=== PATIENT | female | born 1955 | race Caucasian/White ===

== ENCOUNTER 2021-08-30 12:36 | Emergency (ER) | payer OTHER, SELFPAY ==
--- NOTE | ~2021-08-30 | XR_ITS ---
EXAMINATION: XR lumbar spine 2-3V EXAM DATE: 08/30/2021 13:02 INDICATION: Low back pain. No known recent injury. TECHNIQUE: Lumber spine frontal, lateral, lateral L5-S1 projections for interpretation. There is no prior study for comparison. FINDINGS: Mild to moderate disc disease L2-3. Mild upper lumbar, mild to moderate lower lumbar facet arthropathy. No spondylolysis. The vertebral bodies are aligned in the AP dimension. There are no ac clifton fractures identified. Sacrum, sacroiliac joints, sacral arcuate lines are intact. Paraspinal soft tissue is unremarkable. IMPRESSION: 1. Mild to moderate lumbar spondylosis. 2. No acute findings. Reviewed, dictated and finalized at location A.
--- NOTE | 2021-08-30 12:44 | ED.BACK ---
HPI - Back Pain/Injury General Chief Complaint: Back Pain/Injury Stated Complaint: Lower back pain Time Seen by Provider: 08/30/21 12:44 Source: patient Mode of arrival: ambulatory Limitations: no limitations History of Present Illness HPI Narrative: 66 y/o female presented for c/o low back pain onset about 6 days ago. Pain across low back radiates to left buttock. Constant, worse when sitting better when laying flat. Denies numbness tingling or weakness of extremities, denies known injury but states she went on a trip, traveling in a motor home and noticed the pain worsening after running over speed bumps and potholes. Saw chiropractor 4 days ago, felt better after the adjustment, but the pain returned after working and walking often the next day. Since then she has been taking ibuprofen which helps for short time. Denies associated n/v/d/constipation, urinary complaints, f/c. Related Data Allergies Allergy/AdvReac Type Severity Reaction Status Date / Time Sulfa (Sulfonamide Allergy Unknown Verified 08/30/21 12:48 Antibiotics) Review of Systems Review of Systems: CONSTITUTIONAL: Denies body aches, fever, chills EYES: Denies visual changes ENT: Denies rhinorrhea, congestion CARDIOVASCULAR: Denies chest pain, palpitations, or edema. RESPIRATORY: Denies cough or dyspnea. GASTROINTESTINAL: Denies abdominal pain, nausea, vomiting, or diarrhea. SKIN: Denies rash, itching, or wounds. MUSCULOSKELETAL: Reports low back pain NEUROLOGIC: Denies headache, numbness, tingling, or weakness. PSYCH: Denies depression or anxiety. All systems reviewed & are unremarkable except as noted in HPI and below [facility] Comments At time of signature, I have reviewed and agree with nursing past medical, surgical, social and family history unless otherwise noted. Please see nursing chart for further information. There is no relevant family history pertinent to the presenting complaint Exam Narrative: GENERAL: Appears in pain no acute distress. HEAD: Normocephalic, atraumatic. EYES: conjunctivae clear NECK: Supple. CHEST: Speaks in full sentences. No respiratory distress. HEART: Regular rate and rhythm. Normal and equal peripheral pulses. EXTREMITIES: Pain reported across lower back, tender to palpation in the left mid posterior hip consistent with piriformis; bilateral lower extremities have normal strength and sensation, normal range of motion. No edema, lesions, or ecchymosis, . No open wounds or obvious deformity; pulse palpable and equal bilaterally, skin warm, dry, pink. Capillary refill less than 3 seconds. Gait is steady. SKIN: Warm, dry, no rash. NEURO: Alert and oriented x3. PSYCH: Normal mood and affect Course Course Emergency Course: Patient is aware of diagnosis, understands and agrees to treatment plan. Anticipatory guidance given. Patient agrees to follow-up as directed and is aware of reasons to seek care at the emergency department. Portions of this record may have been created with voice recognition software Level of Care: Express Care Visit Vital Signs Vital signs: Vital Signs Temperature 98.2 F 08/30/21 12:45 Pulse Rate 93 08/30/21 12:45 Respiratory Rate 16 08/30/21 12:45 Blood Pressure 126/95 H 08/30/21 12:45 Pulse Oximetry 97 08/30/21 12:45 Temperature 98.2 F 08/30/21 12:45 Pulse Rate 93 08/30/21 12:45 Respiratory Rate 16 08/30/21 12:45 Blood Pressure 126/95 H 08/30/21 12:45 Pulse Oximetry 97 08/30/21 12:45 Reviewed MDM - Back Pain/Injury Differential Diagnosis Differential diagnosis: Likely lumbar radiculopathy, sciatica, strain of lumbar region and discitis Imaging Data Radiologist's impression: Ordering Physician: Huong High APRN Date of Service: 08/30/21 Procedure(s): XR lumbar spine 2-3V Accession Number(s): [id number] cc: Huong High APRN; PROMOTION SPECIALIST PHYSICIAN~ EXAMINATION: XR lumbar spine 2-3V EXAM DATE: 08/30/2021 13:02 INDICATION: Low branden
[2021-08-30 12:45] VITALS: BP 126/95; PULSE 93; RESP 16; TEMP 36.8; O2SAT 97
== END 2021-08-30 13:36 | disposition home or self-care (01) ==
PROVIDERS: Emergency Provider Nurse Practitioner Family
DX: M54.50 Low back pain, unspecified (principal)
CPT/HCPCS: 72100; 99213; G0463

== ENCOUNTER 2021-09-08 10:31 | Emergency (ER) | payer OTHER, SELFPAY ==
[2021-09-08 10:39] VITALS: BP 153/85; PULSE 94; RESP 16; TEMP 36.2; O2SAT 100
--- NOTE | 2021-09-08 10:47 | ED.GENADULT ---
HPI - General Adult General Chief complaint: Unspecified Stated complaint: pinch nerve and numbness Time Seen by Provider: 09/08/21 10:50 Source: patient, RN notes reviewed and old records reviewed Mode of arrival: ambulatory Limitations: no limitations History of Present Illness HPI narrative: 66 year old female presents to [facility] care with complaints of going over 3 speed bumps on their way back from vacation about 2 weeks ago and really caitlin her back Patient was seen in clinic on the and received steroid, and muscle relaxer and had back x-ray done with completion of medication but continues to have problems. Patient states 'she has pinched sciatic nerve going down her leg. Patient reports that she has been seeing chiropractor also with last visit on Thursday which only helps for short interval and has initial appointment with PCP on the 18 of September.Patient states that pain goes from left buttock region arouund left hip laterally down left leg with some intermittent tingling and numbness voiced. 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 MD complaint: Pain to left buttock to left hip and down side of leg Onset (ago): week(s) (2) Location: buttocks, left and lower extremity Radiation: non-radiation Severity scale (1-10): 9 Quality: aching and sharp Treatments prior to arrival: other (medrol dose back and Flexeril and Ibuprofen.) Related Data Home Medications Medication Instructions Recorded Confirmed B12 1 tablet PO DAILY 09/08/21 09/08/21 Allergies Allergy/AdvReac Type Severity Reaction Status Date / Time Sulfa (Sulfonamide Allergy Unknown Verified 09/08/21 10:46 Antibiotics) Review of Systems Review of Systems: CONSTITUTIONAL: Denies fever, chills, or sweats. EYES: Denies visual changes, redness, or discharge. ENT: Denies rhinorrhea, congestion, sore throat, or otalgia. CARDIOVASCULAR: Denies chest pain, palpitations, or edema. RESPIRATORY: Denies cough or dyspnea. GASTROINTESTINAL: Denies abdominal pain, nausea, vomiting, or diarrhea. GENITOURINARY: Denies dysuria or hematuria. SKIN: Denies rash or itching. MUSCULOSKELETAL: Positive for left buttock discomfort with radiation to left hip area and down lateral aspect left lag.no other stated joint pain, or myalgia. NEUROLOGIC: Denies headache, numbness, or weakness. PSYCHIATRIC: Denies anxiety or depression. All systems reviewed & are unremarkable except as noted in HPI and below [facility] Past Medical History Medical History (Updated 09/08/21 @ 19:51 by Lizzie Briones NP) Shoulder injury Social History Social History (Updated 09/08/21 @ 19:52 by Lizzie Briones NP) Smoking status: Never smoker Alcohol intake: current Alcohol use details: social Substance use type: does not use Living arrangements: with family Gender identity (if verbalized by the patient): Female Comments At time of signature, agree with nursing past medical, surgical, social and family history. There is no relevant family history pertinent to the presenting complaint Exam Narrative: GENERAL: Well-appearing, well-nourished, and in some acute distress related to discomfort. HEAD: Normocephalic, atraumatic. EYES: PERRLA and EOMI. ENT: Nares clear, no rhinorrhea or epistaxis. Mucous membranes moist. NECK: Supple. no lymphadenopathy CHEST: Clear to auscultation. No respiratory distress.SAO2 100% on room air HEART: Regular rate and rhythm. No murmur heard. Normal peripheral pulses. ABDOMEN: Soft, nontender, nondistended, normal active bowel sounds. EXTREMITIES: Painful range of motion with ambulation to left lower back with radiation down left hip and lateral leg. No edema. Report some intermittent tingling and numbness, denies any saddle paraesthesia, no problems with bowel or bladder function, strong pulses present to bilateral feet. SKIN: Warm, dry, no rash. NEURO: No focal deficits. Alert and oriented x3. Course Course L
== END 2021-09-08 11:15 | disposition home or self-care (01) ==
PROVIDERS: Emergency Provider Registered Nurse
DX: M54.16 Radiculopathy, lumbar region (principal)
CPT/HCPCS: 99213; G0463

== ENCOUNTER 2021-09-14 13:22 | Emergency (ER) | payer OTHER, SELFPAY ==
[2021-09-14 13:33] VITALS: BP 168/83; PULSE 82; RESP 16; TEMP 36.6; O2SAT 99
--- NOTE | 2021-09-14 13:38 | ED.LOWEXIN ---
HPI - Extremity Injury (Lower) General Chief Complaint: Back Pain/Injury Stated Complaint: hip pain Time Seen by Provider: 09/14/21 13:38 Source: patient Mode of arrival: ambulatory Limitations: no limitations History of Present Illness HPI Narrative: 66 year old female presents to [facility] care for the 3rd time for c/o left lower back and hip pain, radiating to foot, described as a numbness. Endorses left lateral hip and hamstring sharp pain at times. Worse with laying flat. Patient states that pain goes from left buttock around left hip laterally and down left leg with some intermittent tingling and numbness. Endorses the bottom of left foot numb today. Patient states she walks a lot for work at [employer]. Patient was seen in clinic on 08/30 where she received steroid IM, medrol pack, and muscle relaxer; she had L-spine x-ray done, with completion of medication she continued to have problems and returned on 09/08, given prednisone taper and baclofen. Patient reports that she has been seeing chiropractor, scheduled again in 2 days, which only helps for short time and has initial appointment with PCP in 4 days. Related Data Home Medications Medication Instructions Recorded Confirmed mecobalamin (vitamin B12) 1,000 mcg PO DAILY 09/14/21 09/14/21 Allergies Allergy/AdvReac Type Severity Reaction Status Date / Time Sulfa (Sulfonamide Allergy Unknown Verified 09/14/21 13:48 Antibiotics) Review of Systems Review of Systems: CONSTITUTIONAL: Denies body aches, fever, chills EYES: Denies visual changes ENT: Denies rhinorrhea, congestion CARDIOVASCULAR: Denies chest pain, palpitations, or edema. RESPIRATORY: Denies cough or dyspnea. GASTROINTESTINAL: Denies abdominal pain, nausea, vomiting, or diarrhea. SKIN: Denies rash, itching, or wounds. MUSCULOSKELETAL: reports back and hip pain NEUROLOGIC: Denies headache PSYCH: Denies depression or anxiety. All systems reviewed & are unremarkable except as noted in HPI and below PMF[facility] Past Medical History Medical History (Updated 09/14/21 @ 14:04 by Huong High APRN) Shoulder injury Social History Social History Smoking status: Never smoker Alcohol intake: current Alcohol use details: social Substance use type: does not use Gender identity (if verbalized by the patient): Female Comments At time of signature, I have reviewed and agree with nursing past medical, surgical, social and family history unless otherwise noted. Please see nursing chart for further information. There is no relevant family history pertinent to the presenting complaint Exam Narrative: GENERAL: Well-appearing HEAD: Normocephalic, atraumatic. EYES: conjunctivae clear NECK: Supple. CHEST: Speaks in full sentences. No respiratory distress. HEART: Regular rate and rhythm. Normal and equal peripheral pulses. EXTREMITIES: LLE has normal strength and sensation, normal range of motion but endorses pain with movement. Tender to palpation in the left mid posterior hip consistent with piriformis. No edema. No saddle paresthesia, or loss b/b. No open wounds, skin tenting, or obvious deformity; alignment normal, pulse palpable and equal bilaterally, skin warm, dry, pink. Capillary refill less than 3 seconds. Ambulates with steady gait. SKIN: Warm, dry, no rash. NEURO: Alert and oriented x3. PSYCH: Normal mood and affect Course Course Emergency Course: Patient is aware of diagnosis, understands and agrees to treatment plan. Anticipatory guidance given. Patient agrees to follow-up as directed and is aware of reasons to seek care at the emergency department. Portions of this record may have been created with voice recognition software Level of Care: Express Care Visit Vital Signs Vital signs: Reviewed MDM - Extremity Injury (Lower) MDM Narrative Medical decision making narrative: Lumbar xray reviewed from 08/30, Mild to modera
== END 2021-09-14 14:10 | disposition home or self-care (01) ==
PROVIDERS: Emergency Provider Nurse Practitioner Family; PCP Family Medicine
DX: M54.16 Radiculopathy, lumbar region (principal)
CPT/HCPCS: 99213; G0463

== ENCOUNTER 2021-09-24 15:16 | Emergency (ER) | payer OTHER, SELFPAY ==
[2021-09-24 15:39] VITALS: BP 165/104; PULSE 95; RESP 16; TEMP 36.7; O2SAT 100
[2021-09-24 18:46] VITALS: BP 167/104; PULSE 94; RESP 18; O2SAT 97
--- NOTE | 2021-09-24 19:21 | ECG_ITS ---
Measurements Intervals [place] Rate: 91 P: 21 MO: 155 QRS: -53 QRSD: 98 T: 16 QT: 332 QTc: 408 Interpretive Statements SINUS RHYTHM LEFT ANTERIOR FASCICULAR BLOCK VOLTAGE CRITERIA FOR LVH ABNORMAL ECG Electronically Signed On 09-25-2021 6:27:40 CDT by Freddy Buchanan D.O.
[2021-09-24 19:39] LABS: Basophils Percent Auto 0.3 % (0.2-1.2); Eosinophils Absolute Auto 0.1 K/mm3 (0-0.3); Eosinophils Percent Auto 1.3 % (0-4.4); Hemoglobin 15.6 g/dL (12.0-15.0); Immature Granulocyte Absolute 0.05 K/mm3 (0.00-0.031); Immature Granulocyte Percent A 0.5 % (0-0.5); Lymphocytes Absolute Auto 1.93 K/mm3 (0.9-3.2); Lymphocytes Percent Auto 20.7 % (18.3-44.2); Mean Corpuscular HGB Conc 33.2 g/dl (32-36); Mean Corpuscular Hemoglobin 33.3 pg (26-34); Mean Corpuscular Volume 100.2 fl (80-100); Mean Platelet Volume 9.7 fl (7.4-10.4); Monocytes Absolute Auto 0.8 K/mm3 (0.1-0.6); Monocytes Percent Auto 8.1 % (2.6-8.5); Neutrophils Absolute Auto 6.5 K/mm3 (1.3-6.7); Neutrophils Percent Auto 69.1 % (45.5-73.1); Platelet Count Result 304 k/mm3 (150-375); Red Blood Count 4.69 M/mm3 (4.2-5.4); Red Cell Distribution Width 12.8 % (11.5-14.5); White Blood Count 9.3 K/mm3 (4.5-10.0)
[2021-09-24 19:45] LABS: Alanine Aminotransferase 49 U/L (6-35); Albumin Level 4.5 g/dL (3.5-5.1); Alkaline Phosphatase 112 U/L (38-126); Anion Gap 6 mmol/L (8-16); Aspartate Amino Transferase 35 U/L (14-36); Bilirubin,Total 0.8 mg/dL (0.2-1.3); Blood Urea Nitrogen 21 mg/dL (7-17); Calcium 9.2 mg/dL (8.4-10.2); Carbon Dioxide 29 mmol/L (22-30); Chloride 98 mmol/L (98-107); Estimated CRCL calculation 89 ml/min; Estimated Glomerular Filt Rate > 60; Glucose 204 mg/dL (65-110); Magnesium 1.9 mg/dL (1.6-2.3); Potassium 4.6 mmol/L (3.4-5.0); Sodium 133 mmol/L (137-145)
[2021-09-24] MEDS: SODIUM CHLORIDE 0.9% IV 1,000 ML 999 ML IV CONT (20:18)
--- NOTE | 2021-09-24 21:23 | ED.GENADULT ---
HPI - General Adult General Chief complaint: Neuro Symptoms/Deficit Stated complaint: bilat feet numbness since 08/27 Time Seen by Provider: 09/24/21 19:10 Source: patient and RN notes reviewed Mode of arrival: ambulatory Limitations: no limitations History of Present Illness HPI narrative: This is a 66 year old female who presents for evaluation of numbness to her feet. Patient has been dealing with pain to her left hip/back for 1 month. She is currently being evaluated by her PCP for this pain that radiates down her leg. She reports numbness to her foot for month. She states tonight she felt off. She also reports numbness to both of her feet. She denies leg weakness, abdominal pain, back pain, nausea, vomiting, chest pain or shortness of breath. She has been on gabapentin for 1 week. her PCP perform left hip injection last week so her hip pain has improved. She denies saddle anesthesia, urinary retention, incontinence. She denies difficulty walking. Related Data Allergies Allergy/AdvReac Type Severity Reaction Status Date / Time Sulfa (Sulfonamide Allergy Mild joint Verified 09/24/21 18:49 Antibiotics) swelling Review of Systems Review of Systems: All systems reviewed & are unremarkable except as noted in HPI and below PMFSH Past Medical History Medical History Cholecystitis Shoulder injury Tubal Surgical History Surgical History (Updated 09/17/21 @ 08:30 by Dora Pickett MD) History of salpingectomy Hx of cholecystectomy Family History Family History (Updated 09/17/21 @ 08:10 by Daphne Sutherland) Father Diabetes mellitus Hypertension Mother Diabetes mellitus Social History Social History (Updated 09/17/21 @ 08:09 by Daphne Sutherland) Social History: Smoking status: Never smoker Second hand tobacco smoke exposure: No Alcohol intake: current Alcohol use details: Socially Substance use: never Substance use type: does not use Gender identity (if verbalized by the patient): Female Sexual Orientation (if Verbalized by the Patient): Straight or Heterosexual Exam Const: General: no acute distress and alert Orientation/consciousness: patient oriented x3 HENMT: Head: normocephalic Face and sinus: normal facial exam, sinuses nontender and face symmetric Mouth: Yes Normal oral and palatal mucosa present, Yes lip normal, Yes oropharynx normal and Yes moist mucous membranes Eyes: EOM: EOMs intact bilaterally Chest: Chest palpation & inspection: normal inspection of the chest Resp: Effort & Inspection: normal respiratory effort and no retractions Auscultation: clear to auscultation bilaterally Cardio: Rate: regular rate Rhythm: regular rhythm Heart sounds: no murmurs GI: GI Palp: Yes Soft to palpation, No Tenderness to palpation present (GI) and No Guarding due to palpation present (GI) Auscultation: normal bowel sounds : General: Yes no CVA tenderness Back/Spine/Pelvis: Back: no CVA tenderness Skin: General skin exam: normal color Neuro: General: patient oriented x3, moves all extremities, no meningeal signs, no focal motor deficits and CN's II-XI intact bilaterally Speech: normal speech Other: sensation intact. Extrem: General: normal to inspection Psych: Mental Status: mental status grossly normal Affect: normal affect Course Reevaluation(s) Reevaluation #1: Patient presented with numbness to feet that has been present for 1 month. She has not signs of ischemia . She had no appreciable neurological deficit to warrant emergent MRI. She just started gabapentin so will increase dose. LAbs showed some dehydration so she was given IVF. Date: 09/24/21 Time: 21:27 Vital Signs Vital signs: Vital Signs Temperature 98.0 F 09/24/21 15:39 Pulse Rate 95 09/24/21 15:39 Respiratory Rate 16 09/24/21 15:39 Blood Pressure 165/104 H 09/24/21 15:39 Pulse Oximetry
[2021-09-24 22:53] VITALS: BP 175/111; PULSE 87; RESP 16; O2SAT 98
== END 2021-09-24 21:41 | disposition home or self-care (01) ==
PROVIDERS: Emergency Provider General Practice; PCP Family Medicine
DX: G62.9 Polyneuropathy, unspecified (principal)
CPT/HCPCS: 36415; 80053; 83735; 84443; 85025; 93005; 96360; 99283; J7030

== ENCOUNTER 2021-09-26 14:28 | Outpatient (CLI) | payer OTHER, SELFPAY ==
--- NOTE | ~2021-09-26 | XR_ITS ---
EXAMINATION: XR hip BI wo pelvis DATE: 09/26/2021 14:52 INDICATION: Bilateral hip pain. TECHNIQUE: 2 views of right hip and 2 views of left hip were obtained. COMPARISON: None. FINDINGS: Bone alignment is normal. No fracture. There is mild lumbar spondylosis. The hip joint spac es are normal. IMPRESSION: 1. Normal hips. Reviewed, dictated and finalized at location A. IMPRESSION: 1. Normal hips.
== END 2021-09-26 14:29 | disposition home or self-care (01) ==
LOC: ANHIMG 14:31
PROVIDERS: PCP Family Medicine; Visit Provider Nurse Practitioner Gerontology
DX: M25.551 Pain in right hip (principal); M25.552 Pain in left hip; M47.816 Spondylosis without myelopathy or radiculopathy, lumbar region
CPT/HCPCS: 73521

== ENCOUNTER 2022-06-02 07:34 | Outpatient (CLI) | payer MEDICARE, SELFPAY ==
--- NOTE | ~2022-06-02 | CT_ITS ---
EXAMINATION: CT facial bones w con DATE: 06/02/2022 08:20 INDICATION: Right buccal mass. TECHNIQUE: Computed tomography (CT) of the facial bones and maxillofacial region was performed with 7 5 mL Omnipaque 350 intravenous contrast. Automated exposure control and iterative reconstruction tech Webymasterque were employed. The dose-length product was 275.12 mGy-cm. COMPARISON: None. FINDINGS: There is mild mucosal thickening in the paranasal sinuses. The mastoid air cells are normal . There is rightward deviation of the nasal septum. There are periapical lucencies around tooth 5. Th ere is severe cervical spondylosis. There is a skin marker at the right face. Subjacent to the skin m arker and lateral to right mandibular body, there is a 3.3 x 1.8 x 2.1 cm lipoma. IMPRESSION: 1. 3.3 cm lipoma lateral to right mandibular body. Reviewed, dictated and finalized at location A. ADJUSTER
[2022-06-02 08:10] LABS: Estimated Glomerular Filt Rate > 60
== END 2022-06-02 07:35 | disposition home or self-care (01) ==
PROVIDERS: PCP Family Medicine; Visit Provider Dentist General Practice
DX: D21.0 Benign neoplasm of connective and other soft tissue of head, face and neck (principal)
CPT/HCPCS: 70487; Q9967

== ENCOUNTER 2022-06-18 09:11 | Outpatient (CLI) | payer MEDICARE, SELFPAY ==
--- NOTE | ~2022-06-18 | MM_ITS ---
EXAMINATION: MM scrn ji implant BI w suzy HISTORY: Screening mammogram TECHNIQUE: Craniocaudal and mediolateral oblique 3-D tomosynthesis images with implant displacement a nd synthetic 2-D images were generated. Craniocaudal and mediolateral oblique views of the breasts wi thout implant displacement were obtained using full field digital mammography. CAD analysis was submi tted and interpreted. COMPARISON: No prior mammogram is available for comparison at this institution. BREAST PARENCHYMAL COMPOSITION: There are scattered areas of fibroglandular density. FINDINGS: Status post bilateral augmentation mammoplasty. There are some subtle punctate microcalcifications in the mid to upper outer right breast. Diagnostic right mammogram with magnification views is recommended for definitive evaluation. Otherwise there is no evidence of suspicious mass, calcification, or architectural distortion to sugg est malignancy in either breast. IMPRESSION: 1. Subtle grouped indeterminate microcalcifications in the mid to upper outer right breast 2. Diagnostic right mammogram with magnification views is recommended for definitive evaluation of gr ouped microcalcifications BI-RADS Category 0: Incomplete: Needs additional imaging evaluation. Reviewed, dictated and finalized at location A. SCUTTER IMPRESSION: 1. Subtle grouped indeterminate microcalcifications in the mid to upper outer r ight breast 2. Diagnostic right mammogram with magnification views is recommended for defin itive evaluation of grouped microcalcifications BI-RADS Category 0: Incomplete: Needs additional imaging evaluation.
== END 2022-06-18 09:12 | disposition home or self-care (01) ==
LOC: ANHIMG 09:12
PROVIDERS: PCP Family Medicine; Visit Provider Family Medicine
DX: Z12.31 Encounter for screening mammogram for malignant neoplasm of breast (principal); Z98.82 Breast implant status; R92.0 Mammographic microcalcification found on diagnostic imaging of breast
CPT/HCPCS: 77063; 77067

== ENCOUNTER 2022-07-07 11:44 | Outpatient (CLI) | payer MEDICARE, SELFPAY ==
--- NOTE | ~2022-07-07 | MMUS_ITS ---
EXAMINATION: MM diag ji implant RT w suzy, US breast RT limited HISTORY: Subtle grouped indeterminate microcalcifications in the mid to upper outer right breast on F ebruary 2022 screening mammogram TECHNIQUE: Additional 3-D ML tomosynthesis images of the right breast were performed and synthetic 2- D images were generated. Magnification ML, MLO and CC views of right breast. CAD analysis was submitt ed and interpreted. High resolution upper outer quadrant and lower outer quadrant right breast ultras ound was performed. COMPARISON: June 18, 2022 bilateral implant screening mammogram FINDINGS: MAMMOGRAPHIC FINDINGS: A cluster of indeterminate grouped granular appearing microcalcifications is confirmed in the posteri or mid to upper outer right breast. ULTRASOUND: No suspicious mass or shadowing is detected in the upper outer quadrant or lower outer quadrant of th e right breast. There is no sonographic correlate for the small cluster of grouped microcalcification s in the posterior mid to upper outer right breast. IMPRESSION: 1. Indeterminate grouped granular appearing microcalcifications in posterior mid to upper outer right breast 2. Stereotactic biopsy is recommended BI-RADS category 4, suspicious findings. Dr. Nicolas telephoned the report and stereotactic biopsy recommendation for microcalcifications in the posterior mid to upper outer right breast on July 07, 2022 at 1230 hours to nurse practitioner Danny peace. Reviewed, dictated and finalized at location A. TH AND WELLNESS COORDINATOR IMPRESSION: 1. Indeterminate grouped granular appearing microcalcifications in posterior mi d to upper outer right breast 2. Stereotactic biopsy is recommended BI-RADS category 4, suspicious findings. Dr. Nicolas telephoned the report and stereotactic biopsy recommendation for micro calcifications in the posterior mid to upper outer right breast on July 07, 2022 at 1230 hours to nurse practitioner Daphne.
== END 2022-07-07 11:45 | disposition home or self-care (01) ==
LOC: ANHIMG 11:49
PROVIDERS: PCP Family Medicine; Visit Provider Family Medicine
DX: R92.8 Other abnormal and inconclusive findings on diagnostic imaging of breast (principal); R92.0 Mammographic microcalcification found on diagnostic imaging of breast
CPT/HCPCS: 76642; 77061; 77065; G0279

== ENCOUNTER 2022-07-23 10:38 | Outpatient (CLI) | payer MEDICARE, SELFPAY ==
--- NOTE | ~2022-07-23 | MM_ITS ---
MM post biopsy diagnostic RT DATE: 07/23/2022 13:24 INDICATION: Post stereotactic biopsy mammogram TECHNIQUE: Digital ML and CC exposures COMPARISON: June 16, 2022 screening implant mammogram July 07, 2022 diagnostic implant mammogram FINDINGS: All microcalcifications of interest were successfully removed by stereotactic biopsy. The biopsy marker has migrated approximately 2 cm medial to the biopsy site. IMPRESSION: Successful extraction of all grouped microcalcifications of interest from the mid outer r ight breast; biopsy marker is migrated approximately 2 cm medial to the biopsy site. Reviewed, dictated and finalized at Location A. Reviewed, dictated and finalized at location A. IMPRESSION: Successful extraction of all grouped microcalcifications of interes t from the mid outer right breast; biopsy marker is migrated approximately 2 cm medial to the biopsy site.
--- NOTE | ~2022-07-23 | MM_ITS ---
MM stereotactic specimen RT DATE: 07/23/2022 13:24 INDICATION: Stereotactic biopsy of grouped microcalcifications, mid to posterior upper right breast TECHNIQUE: Single digital mammographic exposure of stereotactic biopsy specimen tissue COMPARISON: 07/07/2022 diagnostic right mammogram FINDINGS: The microcalcifications of interest are present within the biopsy specimen. IMPRESSION: Successful stereotactic breast biopsy yielding multiple microcalcifications of interest f rom the mid to upper outer right breast Reviewed, dictated and finalized at Location A. Reviewed, dictated and finalized at location A. IMPRESSION: Successful stereotactic breast biopsy yielding multiple microcalcif ications of interest from the mid to upper outer right breast
--- NOTE | ~2022-07-23 | MM_ITS ---
EXAMINATION: MM stereotactic bx RT, Specimen Radiograph, Tissue Marker Clip Placement, Unilateral [place] mogram DATE: 07/23/2022 13:23 INDICATION: Abnormal mammogram: Grouped indeterminate microcalcifications in the mid to upper right b reast. TECHNIQUE AND FINDINGS: The risks and potential benefits of the procedure were discussed with the patient and written informe d consent was obtained. Timeout procedure was performed. The patient was placed in the prone position on the dedicated stereotactic table with the right breast in lateral medial compression, and the are a of interest was localized and targeted utilizing digital imaging with stereotaxis. After sterile preparation of the skin, 1% lidocaine was utilized for local anesthesia at the skin pun cture site and 2 % lidocaine with epinephrine was utilized for deeper local anesthesia/is about the b iopsy site. A 9G [employer] vacuum assisted biopsy needle was advanced to the level of the calcification of interest from a lateral approach utilizing stereotactic guidance and a total of 12 tissue core bio psies were obtained. A specimen radiograph demonstrates that the calcifications of interest are included within the tissue cores. A tissue marker clip was then placed at the biopsy site. A digital mammographic exposure co nfirmed the successful deployment of the biopsy marker. The needle was removed and hemostasis was ac hieved. A sterile bandage was applied. The patient tolerated the procedure well and there is no elijah dence of significant immediate complication. The patient was given verbal as well as written postpro cedural instructions prior to discharge from the department. Tissue cores were submitted to surgical pathology for histologic analysis. A 2-view RIGHT unilateral digital mammogram was obtained post procedure, demonstrating the tissue mar ker clip in expected position. IMPRESSION: 1. Successful stereotactic biopsy of right mid to upper outer quadrant grouped microcalcifications, followed by tissue marker clip placement. Please refer to pathology report for histologic analysis. Reviewed, dictated and finalized at Location [facility]. Reviewed, dictated and finalized at location A. IMPRESSION: 1. Successful stereotactic biopsy of right mid to upper outer quadrant groupe d microcalcifications, followed by tissue marker clip placement. Please refer to pathology report for histologic analysis.
== END 2022-07-23 10:39 | disposition home or self-care (01) ==
PROVIDERS: PCP Family Medicine; Visit Provider Nurse Practitioner Gerontology
DX: R92.8 Other abnormal and inconclusive findings on diagnostic imaging of breast (principal); N60.11 Diffuse cystic mastopathy of right breast
CPT/HCPCS: 19081; 77065; 88305; A4648

== ENCOUNTER 2023-12-30 13:41 | Outpatient (CLI) | payer MEDICARE, SELFPAY ==
--- NOTE | ~2023-12-30 | MM_ITS ---
EXAMINATION: MM scrn ji implant BI w suzy HISTORY: Screening mammogram TECHNIQUE: Craniocaudal and mediolateral oblique 3-D tomosynthesis images with implant displacement a nd synthetic 2-D images were generated. Craniocaudal and mediolateral oblique views of the breasts wi thout implant displacement were obtained using full field digital mammography. CAD analysis was submi tted and interpreted. COMPARISON: Comparison to multiple prior studies sequentially, with oldest reviewed study dated 12/2022. BREAST PARENCHYMAL COMPOSITION: Not dense: There are scattered areas of fibroglandular density. FINDINGS: There is no evidence of suspicious mass, calcification, or architectural distortion to sugg est malignancy in either breast. There has been no suspicious interval change. IMPRESSION: 1. No mammographic evidence of malignancy. 2. Recommend routine screening mammography in one year. BI-RADS Category 1: Negative Reviewed, dictated and finalized at location B.
== END 2023-12-30 13:42 | disposition home or self-care (01) ==
LOC: ANHIMG 13:42
PROVIDERS: PCP Family Medicine; Visit Provider Family Medicine
DX: Z12.31 Encounter for screening mammogram for malignant neoplasm of breast (principal)
CPT/HCPCS: 77063; 77067

== ENCOUNTER 2025-01-24 14:12 | Outpatient (CLI) | payer MEDICARE, SELFPAY ==
--- NOTE | ~2025-01-24 | MM_ITS ---
EXAMINATION: MM scrn ji implant BI w suzy HISTORY: Screening TECHNIQUE: Craniocaudal and mediolateral oblique 3-D tomosynthesis images were obtained and synthetic 2-D images were generated. CAD analysis was submitted and interpreted. Implant displacement views were obtained. COMPARISON: 12/30/2023 BREAST PARENCHYMAL COMPOSITION: Not Dense: The breasts are almost entirely fatty. FINDINGS: There is no evidence of suspicious mass, calcification, or architectural distortion to suggest malignancy. There has been no suspicious interval change. Unremarkable breast implants. IMPRESSION: 1. No mammographic evidence of malignancy. Recommend routine screening mammography in one year. BI-RADS Category 2: Benign finding(s) Reviewed, dictated and finalized at location Q. IMPRESSION: 1. No mammographic evidence of malignancy. Recommend routine screening mammogra phy in one year. BI-RADS Category 2: Benign finding(s)
--- OUTSIDE RECORDS SUMMARY | 2025-01-24 15:52 | XMS_ITS | Clinical Summary ---
Author Organization [facility] Address [address] [place] [address] Care Team Providers Care Rod Buster Helper Name Role Phone Unavailable Primary Care Provider Unavailabl e Social History Tobacco Use Types Packs/Day Years Used Date Smoking Tobacco: Never Assessed Comments Unknown Sex and Gender Information Value Date Recorded Sex Assigned at Not on file Legal Sex Female 12:50 PM CDT Gender Identity Not on file Sexual Orientation Not on file Plan of Treatment Health Maintenance Due Date Last Done Comments Colorectal Cancer Screening Colonoscopy (10 Years) 1957 Hepatitis C 1975 DTaP, Tdap and Td Vaccines ( 1 - Tdap) 1976 Mammogram Screening 1997 Pneumococcal Vaccine: 50+ Ye ars (1 of 1 - PCV) 2007 Zoster Vaccines (1 of 2) 2007 Dexa Scan (General) 2022 COVID-19 Vaccine ( - 2023-2 5 season) 2025 RSV Immunization or 60+ Years (1 - 1-dose 75+ series) 2032 Meningococcal B Vaccine Aged Out No l onger eligible based on patient's age to complete this topic Meningococcal Vaccine Aged Out No najma tim eligible based on patient's age to complete this topic RSV Immunizations Under 20 Months Aged Out No longer eligible based on patient's age to complete this topic Insurance [place] [id number]
--- OUTSIDE RECORDS SUMMARY | 2025-01-24 15:52 | XMS_ITS | Clinical Summary ---
Author Organization [facility] Address [address] [place] [address] Care Team Providers Care Extruding Machine Operator Name Role Phone Unavailable Primary Care Provider Unavailabl e Source Comments [facility],non-owned Affiliates and Associated Physician Practices is amultiple site organization consisting of ambulatory clinics and hospital sitesin [place], [place], [place] and [place]. This disclosure is being madepursuant to the Care Everywhere program and may not contain all information available regarding this patient. 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 Gender Identity Not on file Sexual Orientation Not on file Plan of Treatment Health Maintenance Due Date Last Done Comments BONE DENSITY TESTING 1957 COLOGUARD (AGES 45-75) - COL ON CA SCREENING 1957 COLON MONITORING 1957 COLONOSCOPY - COLON CA SCREENING 1957 CT COLONOGRAPHY - COLON CA SCREENING 1957 Colorectal Cancer Screening 1957 FIT - COLON CA SCREENING 1957 FLEX SIG - COLON CA SCREENING 1957 LIPID TESTING 1957 MAMMOGRAM 1957 HEPATITIS C SCREENING 04/16/1975 DTAP/TDAP/TD VACCINES (1 - Tdap) 1976 PNEUMOCOCCAL VACCINE 50+ (1 of 1 - PCV) 2007 ZOSTER VACCINE (1 of 2) 2007 DEPRESSION SCREENING 05/11/2024 MEDICARE AWV CALENDAR YEAR 2024 COVID-19 VACCINE (1 - 2023-2 5 season) 2025 INFLUENZA VACCINE (#1) 2025 Respiratory Syncytial Virus (RSV) Vaccine Pt: or over 60 yrs (1 - 1-dose 75+ series) 2032 HEPATITIS B VACCINE Aged Out No longe r eligible based on patient's age to complete this topic HIB VACCINE Aged Out No longer eligi ble based on patient's age to complete this topic HPV VACCINE Aged Out No longer eligi ble based on patient's age to complete this topic MENINGOCOCCAL (Group B) VACC INE SHARED DECISION-MAKING Aged Out No longer eligibl e based on patient's age to complete this topic MENINGOCOCCAL GROUPS A/C/Y/W VACCINE Aged Out No longer eligible b ased on patient's age to complete this topic Insurance [employer] MANAGED MEDICARE ADV
--- OUTSIDE RECORDS SUMMARY | 2025-01-24 15:52 | XMS_ITS | Clinical Summary ---
Author Organization [facility] Address [address] [place] [address] Care Team Providers Care Knot Cutter Name Role Phone Dora Pickett MD Primary Care Provider [phone] Social History Tobacco Use Types Packs/Day Years Used Date Smoking Tobacco: Never Assessed Comments Unknown Sex and Gender Information Value Date Recorded Sex Assigned at Not on file Legal Sex Female 7:04 PM CDT Gender Identity Not on file Sexual Orientation Not on file Plan of Treatment Not on file Insurance MEDICA Care Teams Knot Cutter Relationship Specialty Start Date End Date Dora Pickett MD [address] [place] [address] PCP - General Family Medicine 10/21/21
--- OUTSIDE RECORDS SUMMARY | 2025-01-24 15:52 | XMS_ITS | Clinical Summary ---
Author Organization [address] Address [address] [place] [id number] Care Team Providers Care Communications Media Professor Name Role Phone Miscellaneous, Not In File Primary Care Provider Unavailable Allergies Active Allergy Reactions Criticality Noted Date Comments Sulfa (Sulfonamide Antibiotics) Itching,Edema,Joint pain Medium 10/21/2022 Medications cloNIDine (CATAPRES) 0.1 mg tablet Take 1 tablet (0.1 mg total) by mouth 2 (two) times a day as needed for high blood pressure (Systolic blood pressure above 180) 30 tablet 10/21/2022 Active Surgical History Surgery Date Site/Laterality Comments CHOLECYSTECTOMY TUBAL LIGATION Bilateral Medical History Medical History Date Comments Hypertension Social History Tobacco Use Types Packs/Day Years Used Date Smoking Tobacco: Never Smokeless Tobacco: Never Tobacco Cessation:Counseling Given: Not Answered Alcohol Use Standard Drinks/Week Comments Yes 0 (1 standard drink = 0.6 oz pur e alcohol) Socially Personal Safety Answer Date Recorded Getting School Help Needed Not on file 10/26 Comments Unknown Sex and Gender Information Value Date Recorded Sex Assigned at Not on file Legal Sex Female 1:26 PM LEAD INVESTIGATOR Gender Identity Not on file Sexual Orientation Not on file Obstetrics History Last Filed Vital Signs Vital Sign Reading Time Taken Comments Blood Pressure 156/87 10/21/2022 4:45 PM CDT Pulse 81 10/21/2022 4:45 PM CDT Temperature 36.9 C (98.5 F) 10/21/2022 1:16 PM CDT Respiratory Rate 13 10/21/2022 4:45 PM CDT Oxygen Saturation 93% 10/21/2022 4:45 PM CDT Inhaled Oxygen Concentration - - Weight 69.4 kg (153 lb) 10/21/2022 1:16 PM CDT Height 161.3 cm (5' 3.5) 10/21/2022 1:16 PM CDT Body Mass Index 26.68 10/21/2022 1:16 PM CDT Plan of Treatment Health Maintenance Due Date Last Done Comments Breast Cancer Screening-Mammogram 1957 Colon Cancer Screening-Colonoscopy 1957 Depression Screening 1957 Fall Risk Assessment 1957 Hepatitis C Screening 1957 Osteoporosis Screening-Bone Density Scan 1957 DTaP/Tdap/Td Vaccine (1 - Tdap) 1968 Hepatitis B Screening 1975 Pneumococcal vaccine 65+ (1 of 1 - PCV) 2007 Zoster Vaccine (1 of 2) 2007 Well Visit 65+ 2022 Covid-19 Vaccine ( season) 2025 04/11/2021, 09/26/2020, 08/29/2020 Influenza Vaccine (#1) 2025 Care Teams Communications Media Professor Relationship Specialty Start Date End Date Miscellaneous, Not In File PCP - General 10/21/22
--- OUTSIDE RECORDS SUMMARY | 2025-01-24 15:52 | XMS_ITS | Encounter Summary ---
Author Organization [facility] Address [address] [address] Care Team Providers Care Sole Dyer Name Role Phone Unavailable Primary Care Provider Unavailabl e Encounter Details Date Type Department Care Team (Late st Contact Info) Description 07/29/2022 Lab Requisition [facility] Care Pathology Lab [address] [place] [address] Ezra Rader MD [address] [facility] [facility] [address] [place] [id number] Illness, unspecified Social History Tobacco Use Types Packs/Day Years Used Date Smoking Tobacco: Never Assessed Comments Unknown Sex and Gender Information Value Date Recorded Sex Assigned at Not on file 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
== END 2025-01-24 14:13 | disposition home or self-care (01) ==
LOC: ANHFOHIMG 14:12
PROVIDERS: PCP Family Medicine; Visit Provider Family Medicine
DX: Z12.31 Encounter for screening mammogram for malignant neoplasm of breast (principal)
CPT/HCPCS: 77063; 77067

== ENCOUNTER 2025-04-03 10:23 | Emergency (ER) | payer MEDICARE, SELFPAY ==
--- NOTE | ~2025-04-03 | CT_ITS ---
EXAMINATION: CTA BRAIN/CAROTID DATE: 04/03/2025 11:30 INDICATION: Tremor TECHNIQUE: Computed tomographic angiography (CTA) of the head and neck was performed with 100 mL Omnipaque-350 intravenous contrast. Multiplanar reconstructions and maximum intensity projection 3D-reconstructions of the carotid arteries and of the intracranial arteries were created by the technologist on a separate workstation. Precontrast CT of the head was also obtained. Automated exposure control and iterative reconstruction technique were employed.The dose-length product was 1643.12 mGy-cm. COMPARISON: None. FINDINGS: Head: No acute intracranial hemorrhage, acute infarction or abnormal extra axial fluid collection. Ventricles are normal and symmetric. No mass/mass effect. No abnormally enhancing brain lesions on the post contrast imaging. The orbits, paranasal sinuses and mastoid air cells are normal. Intracranial arteries Vertebral arteries are codominant. Small amount of nonhemodynamically significant atherosclerotic plaque at the bilateral carotid siphons. There is no hemodynamically significant stenosis in the vertebral, basilar and internal carotid arteries. Both A1 and P1 segments are patent. There are also patent anterior communicating and bilateral posterior communicating arteries. There are no aneurysms identified. Cerebral arterial arborization appears symmetric. Carotid arteries: Aneurysmal dilation of the visualized ascending thoracic aorta measuring up to 4.3 cm. This tapers to a normal caliber of 3.4 cm at level of the takeoff of the innominate artery. No dissection of the visualized thoracic aorta. The great vessels arising from the arch are normal in caliber with no hemodynamically significant stenosis or dissection. There is no evident atherosclerotic plaque with 0% stenosis of the right and left carotid bulbs relative to normal distal artery lumen diameter (NASCET criteria). Bilateral extracranial vertebral arteries are codominant with no hemodynamically significant stenosis. Visualized upper lungs are clear. Cervical soft tissues are unremarkable. Mild to moderate cervical spondylosis. IMPRESSION: 1. No evident plaque with 0% stenosis of the right and left carotid bulbs relative to normal distal artery lumen diameter (NASCET criteria). 2. Unremarkable head CT and cerebral CT angiogram with no acute intracranial process, hemodynamically significant stenosis, thrombosis or aneurysm. Reviewed, dictated and finalized at location A. [facility] IMPRESSION: 1. No evident plaque with 0% stenosis of the right and left carotid bulbs relat bill to normal distal artery lumen diameter (NASCET criteria). 2. Unremarkable head CT and cerebral CT angiogram with no acute intracranial pr ocess, hemodynamically significant stenosis, thrombosis or aneurysm.
[2025-04-03 10:29] VITALS: BP 146/94; PULSE 86; RESP 16; TEMP 36.5; O2SAT 100
[2025-04-03 10:35] VITALS: BP 146/94; PULSE 88; RESP 21; O2SAT 98
--- NOTE | 2025-04-03 10:46 | ECG_ITS ---
Test Date: 2025-04-03 10:54:14 Measurements Intervals [place] Rate: 75 P: 66 DE: 167 QRS: -56 QRSD: 113 T: 20 QT: 366 QTc: 411 Interpretive Statements SINUS RHYTHM PATTERN CONSISTENT WITH PULMONARY DISEASE LEFT ANTERIOR FASCICULAR BLOCK [QRS AXIS <= -45, QR IN I, RS IN II] MODERATE VOLTAGE CRITERIA FOR LVH, CONSIDER NORMAL VARIANT [MEETS CRITERIA IN ONE OF: R(aVL), S(V1), R(V5), R(V5/V6)+S(V1)] ABNORMAL ECG No previous ECG available for comparison Electronically Signed On 04-03-2025 13:56:12 COLUMNIST by Rocky Richardson M.D.
--- NOTE | 2025-04-03 10:52 | ED_ITS ---
HPI - General Adult General Chief complaint: Unspecified Stated complaint: Dr sent me for CT scan Time Seen by Provider: 04/03/25 10:26 History of Present Illness HPI narrative: 69-year-old female presented to the emergency department for evaluation for head tremor that is been ongoing for the last few months. Patient did call her primary care physician today regarding the symptoms and she was referred to the emergency department for further evaluation. Patient states the tremor happens intermittently. Time of evaluation patient has no tremor. Patient is unable to say factors that make the tremor worse. Patient denies any medication changes. Patient does have a history of a fall a few weeks ago during which she states she woke up on her back. Patient contributed the cause of the fall to low blood sugar at that time. Patient does take amlodipine, gabapentin, irbesartan, metformin and trazodone. Related Data Allergies Allergy/AdvReac Type Severity Reaction Status Date / Time Sulfa (Sulfonamide Allergy Mild joint Verified 04/03/25 10:34 Antibiotics) swelling Review of Systems 2 Review of Systems: All systems reviewed & are unremarkable except as noted in HPI and below PMFSH Past Medical History Medical History (Updated 04/03/25 @ 12:22 by вИан Shelby MD) Low back pain GABRIEL (generalized anxiety disorder) Colon cancer screening Abnormal screening mammogram Colonoscopy refused Lumbar back sprain Leg pain, right Elevated BP without diagnosis of hypertension Breast screening Lipid screening B12 deficiency Numbness and tingling of both legs Acute pain due to injury Lumbosacral radiculopathy at S1 Sacroiliac joint dysfunction of left side Trochanteric bursitis, left hip Acute pain Tubal Cholecystitis Shoulder injury Surgical History Surgical History History of salpingectomy Hx of cholecystectomy Family History Family History Father Diabetes mellitus Hypertension Mother Diabetes mellitus Social History Social History Social History: Smoking status: Never smoker Second hand tobacco smoke exposure: No Alcohol intake: current Alcohol use details: Socially Substance use: never Substance use type: does not use Do You Feel Safe in your Home?: Yes Lack of Transportation: No Lack of Food: Never True Current Housing: I Have Housing Concerned About Future Housing: No Difficulty Paying Gas/Electric Bills: No Difficulty Paying for Meds: No Currently Unemployed: YES Education: Decline to Answer Difficulty w/ Childcare or Family Care: No Living arrangements: with family Occupation/Education: retired Gender identity (if verbalized by the patient): Female Sexual Orientation (if Verbalized by the Patient): Straight or Heterosexual Exam 2 Narrative: APPEARANCE: Well appearing, no pain, no distress, well-nourished. HEAD: normocephalic, atraumatic. EYES: PERRLA/EOMI, conjunctivae clear. NOSE: Normal no drainage EARS:TMS clear with good light reflex. THROAT: Pharynx clear, no exudate. NECK: Supple. No adenopathy, no masses. RESPIRATORY: Airway patent, respirations nonlabored. Clear to auscultation bilaterally, no rales, rhonchi, wheezing. CARDIOVASCULAR: Regular rate and rhythm without murmurs rubs or gallops. ABDOMINAL: Soft, nontender, nondistended, normal bowel sounds MUSCULOSKELETAL: Moves all extremities. Strength/ROM intact, No edema, No calf tenderness. NEURO: Alert. Cranial nerves II through XII intact. Good gait. Good coordination SKIN: Warm, dry. Normal Color PSYCHIATRIC: Normal affect/mood. Course Vital Signs Vital signs: Vital Signs Temperature 97.7 F 04/03/25 10:29 Pulse Rate 86 04/03/25 10:29 Respiratory Rate 16 04/03/25 10:29 Blood Pressure 146/94 H 04/03/25 10:29 Pulse Oximetry 100 04/03/25 10:29 Oxygen Delivery Room Air 04/03/25 10:29 Temperature 97.9 F 04/03/25 11:04 Pulse Rate 76 04/03/25 12:33 Respiratory Rate 24 H 04/03/25 11:04 Blood Pressure 150/93 H 04/03/25 12:33 Pulse Oximetry 100 04/03/25 11:04 Oxygen Delivery Room Air 04/03/25 10:35 Medical Decision Making MDM Narrative Medical decision making narrative: 69-year-old female presenting to the emergency department for evaluation for intermittent tremors. Patient has not yet had follow-up with primary care physician for this she was referred to the emergency department by her primary care physician. Patient had no tremor time of evaluation. Patient had normal neuro exam. Patient was well-appearing and in no distress. Patient was afebrile with no leukocytosis and a stable hemoglobin. INR of 1.0. Patient had no significant abnormalities on her CMP. CTA was negative for acute abnormality. Patient was up the results of her workup. Patient was encouraged close follow-up with her primary care physician. All questions concerns were addressed. Differential Diagnosis Differential Diagnosis: Subdural hematoma, subarachnoid hemorrhage, electrolyte abnormality, Calhoun's, Parkinson's, essential tremor Vital Signs Vital Signs: Vital Signs Temperature 97.7 F 04/03/25 10:29 Pulse Rate 86 04/03/25 10:29 Respiratory Rate 16 04/03/25 10:29 Blood Pressure 146/94 H 04/03/25 10:29 Pulse Oximetry 100 04/03/25 10:29 Oxygen Delivery Room Air 04/03/25 10:29 Temperature 97.9 F 04/03/25 11:04 Pulse Rate 76 04/03/25 12:33 Respiratory Rate 24 H 04/03/25 11:04 Blood Pressure 150/93 H 04/03/25 12:33 Pulse Oximetry 100 04/03/25 11:04 Oxygen Delivery Room Air 04/03/25 10:35 Lab Data Lab results reviewed: Yes I reviewed the patient's lab results. 04/03/25 11:02 04/03/25 11:19 Labs: Lab Results 04/03/25 04/03/25 Range/Units 11:02 11:19 WBC 4.6 (4.5-10.0) K/mm3 RBC 4.09 L (4.2-5.4) M/mm3 Hgb 13.7 (12.0-15.0) g/dL Hct 41.1 (37.0-47.0) % MCV 100.5 H (80-100) fl MCH 33.5 (26-34) pg MCHC 33.3 (32-36) g/dl RDW 12.2 (11.5-14.5) % Plt Count 232 (150-375) k/mm3 MPV 10.1 (7.4-10.4) fl Immature Gran % (Auto) 0.2 (0-0.5) % Neut % (Auto) 54.6 (45.5-73.1) % Lymph % (Auto) 27.5 (18.3-44.2) % [place] % (Auto) 14.6 H (2.6-8.5) % Eos % (Auto) 2.4 (0-4.4) % Baso % (Auto) 0.7 (0.2-1.2) % Lymph # (Auto) 1.26 (0.9-3.2) K/mm3 [place] # (Auto) 0.7 H (0.1-0.6) K/mm3 Eos # (Auto) 0.1 (0-0.3) K/mm3 Baso # (Auto) 0.0 (0.0-0.1) K/mm3 Abs Immat Gran (auto) 0.01 (0.00-0.031) K/mm3 Absolute Neuts (auto) 2.5 (1.3-6.7) K/mm3 Absolute Nucleated RBC 0.000 (0.0-0.012) K/mm3 Nucleated RBC % 0.0 (0.0-0.2) % PT 12.7 (11.1-14.7) Seconds INR 1.0 APTT 22.3 (22.3-36.8) Seconds Sodium 135 L (137-145) mmol/L Potassium 4.1 (3.4-5.0) mmol/L Chloride 98 (98-107) mmol/L Carbon Dioxide 31 H (22-30) mmol/L Anion Gap 6 (4-12) mmol/L BUN 19 H (7-17) mg/dL Creatinine 0.81 1.00 (0.7-1.0) mg/dL Estim Creat Clear Calc 58 47 ml/min Estimated GFR > 60 55 L (59 - ) Glucose 141 H (65-110) mg/dL Calcium 10.1 (8.4-10.2) mg/dL Magnesium 1.7 (1.6-2.3) mg/dL Total Bilirubin 0.8 (0.2-1.3) mg/dL AST 38 H (14-36) U/L ALT 36 H (6-35) U/L Alkaline Phosphatase 65 (38-126) U/L Total Protein 8.0 (6.3-8.2) g/dL Albumin 4.3 (3.5-5.1) g/dL TSH (Reflex) 1.320 (0.465-4.68) uIU/mL Imaging Data Radiologist's impression: Impressions Head/Neck CTA 04/03/25 11:59 IMPRESSION: 1. No evident plaque with 0% stenosis of the right and left carotid bulbs relative to normal distal artery lumen diameter (NASCET criteria). 2. Unremarkable head CT and cerebral CT angiogram with no acute intracranial process, hemodynamically significant stenosis, thrombosis or aneurysm. Discharge Plan Discharge Clinical Impression: Tremor Patient Disposition: Home Condition: Stable Instructions: Antibiotic Form, Tremors (ED) Additional Instructions: Have close follow-up with your primary care physician for additional outpatient testing. If you have any worsening symptoms then please call or return to the emergency department. Patient Language: Kittitian Prescriptions: No Action amlodipine 2.5 mg tablet 2.5 mg PO .PM Qty: 90 3RF hydrocortisone 2.5 % cream with perineal applicator 1 applic RECTAL BID PRN (Reason: hemorrhoids) Qty: 30 0RF Rx Instructions: Apply sparingly as needed up to two times per day. Do not use longer than 7 days trazodone 100 mg tablet See Rx Instructions .ROUTE .COMPLEX Qty: 90 1RF Dose Instruction: TAKE 1 TABLET BY MOUTH EVERY DAY AT BEDTIME NEEDED FOR INSOMNIA Rx Instructions: TAKE 1 TABLET BY MOUTH EVERY DAY AT BEDTIME NEEDED FOR INSOMNIA irbesartan-hydrochlorothiazide 300-12.5 mg tablet See Rx Instructions .ROUTE .COMPLEX Qty: 90 2RF Dose Instruction: TAKE 1 TABLET BY MOUTH DAILY Rx Instructions: TAKE 1 TABLET BY MOUTH DAILY pravastatin 10 mg tablet See Rx Instructions .ROUTE .COMPLEX Qty: 90 0RF Dose Instruction: TAKE 1 TABLET BY MOUTH EVERY DAY AT BEDTIME Rx Instructions: TAKE 1 TABLET BY MOUTH EVERY DAY AT BEDTIME metformin 500 mg tablet extended release 24 hr See Rx Instructions .ROUTE .COMPLEX Qty: 90 0RF Dose Instruction: TAKE 1 TABLET BY MOUTH DAILY Rx Instructions: TAKE 1 TABLET BY MOUTH DAILY gabapentin 100 mg capsule See Rx Instructions .ROUTE .COMPLEX Qty: 180 0RF Dose Instruction: TAKE 3 CAPSULES BY MOUTH TWICE DAILY Rx Instructions: TAKE 4 CAPSULES BY MOUTH QHS Follow-up/Referrals: Rickey Guzman MD [Primary Care Provider, Family Practice]
--- NOTE | 2025-04-03 11:02 | PC.NURSE ---
assumed care of pt from leta whitaker. pt resting on stretcher, no distress at this time. pt informed we are waiting for lab results and ct scan that was ordered. no questions
[2025-04-03 11:04] VITALS: BP 155/85; PULSE 77; RESP 24; TEMP 36.6; O2SAT 100
[2025-04-03 11:10] LABS: Hematocrit 41.1 % (37.0-47.0); Hemoglobin 13.7 g/dL (12.0-15.0); Immature Granulocyte Percent A 0.2 % (0-0.5); Lymphocytes Absolute Auto 1.26 K/mm3 (0.9-3.2); Mean Corpuscular HGB Conc 33.3 g/dl (32-36); Mean Corpuscular Hemoglobin 33.5 pg (26-34); Mean Corpuscular Volume 100.5 fl (80-100); Nucleated Red Blood Cells Absolute Auto 0.000 K/mm3 (0.0-0.012); Nucleated Red Blood Cells Perc 0.0 % (0.0-0.2); Platelet Count Result 232 k/mm3 (150-375); Red Blood Count 4.09 M/mm3 (4.2-5.4); White Blood Count 4.6 K/mm3 (4.5-10.0)
[2025-04-03 11:21] LABS: Estimated CRCL calculation 47 ml/min; Estimated Glomerular Filt Rate 55
[2025-04-03 11:21] LABS: INR 1.0; Partial Thromboplastin Time 22.3 Seconds (22.3-36.8); Prothrombin Time 12.7 Seconds (11.1-14.7)
[2025-04-03 11:29] LABS: Alanine Aminotransferase 36 U/L (6-35); Albumin Level 4.3 g/dL (3.5-5.1); Alkaline Phosphatase 65 U/L (38-126); Anion Gap 6 mmol/L (4-12); Aspartate Amino Transferase 38 U/L (14-36); Bilirubin,Total 0.8 mg/dL (0.2-1.3); Blood Urea Nitrogen 19 mg/dL (7-17); Calcium 10.1 mg/dL (8.4-10.2); Carbon Dioxide 31 mmol/L (22-30); Chloride 98 mmol/L (98-107); Estimated CRCL calculation 58 ml/min; Estimated Glomerular Filt Rate > 60; Glucose 141 mg/dL (65-110); Magnesium 1.7 mg/dL (1.6-2.3); Potassium 4.1 mmol/L (3.4-5.0); Sodium 135 mmol/L (137-145); Total Protein 8.0 g/dL (6.3-8.2)
[2025-04-03 11:53] LABS: Thyroid Stimulating Hormone Reflex 1.320 uIU/mL (0.465-4.68)
--- OUTSIDE RECORDS SUMMARY | 2025-04-03 12:06 | XMS_ITS | Clinical Summary ---
Author Organization [facility] Address [address] [place] [address] Care Team Providers Care Diesel Retrofit Designer Name Role Phone Unavailable Primary Care Provider [...] Scan (General) 2022 COVID-19 Vaccine ( - 2024-2 6 season) 2025 Influenza Adult (#1) 2025 RSV Immunization or 60+ Years (1 - 1-dose 75+ series) 2032 Hepatitis A Vaccines Aged Out No long er eligible based on patient's age to complete this topic Meningococcal B Vaccine Aged Out No l onger eligible based on patient's age to complete this topic Meningococcal Vaccine Aged Out No najma itm eligible based on patient's age to complete this topic RSV Immunizations Under 20 Months Aged Out No longer eligible based on patient's age to complete this topic Insurance [place] [id number]
--- OUTSIDE RECORDS SUMMARY | 2025-04-03 12:06 | XMS_ITS | Encounter Summary ---
Author Organization [facility] Health Address [address] [place] [address] Care Team Providers Care Demolition Worker Name Role Phone Unavailable Primary Care Provider Unavailabl e Encounter Details Date Type Department Care Team (Late st Contact Info) Description 07/29/2022 Lab Requisition [facility] Care Pathology Lab [address] [place] [address] Ezra Rader MD [address] [facility] [address] [place] [id number] Illness, unspecified Social History Tobacco Use Types Packs/Day Years Used Date Smoking Tobacco: Never Assessed Comments Unknown Sex and Gender Information Value Date Recorded Sex Assigned at Not on file 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
--- OUTSIDE RECORDS SUMMARY | 2025-04-03 12:06 | XMS_ITS | Clinical Summary ---
Author Organization [facility] Address [address] [place] [address] Care Team Providers Care Mattress Stripper Name Role Phone Dora Pickett MD Primary Care Provider [phone]- [phone] Social History Tobacco Use Types Packs/Day Years Used Date Smoking Tobacco: Never Assessed Comments Unknown Sex and Gender Information Value Date Recorded Sex Assigned at Not on file Legal Sex Female 7:04 PM CDT Gender Identity Not on file Sexual Orientation Not on file Plan of Treatment Not on file Insurance [employer] Care Teams Mattress Stripper Relationship Specialty Start Date End Date Dora Pickett MD [address] [place] [address] PCP - General Family Medicine 10/21/21
--- OUTSIDE RECORDS SUMMARY | 2025-04-03 12:06 | XMS_ITS | Clinical Summary ---
Author Organization [facility] Address [address] [place] [address] Care Team Providers Care Corporate Development Associate Name Role Phone Unavailable Primary Care Provider Unavailabl e Source Comments [facility],non-owned Affiliates and Associated Physician Practices is amultiple site organization consisting of ambulatory clinics and hospital sitesin [place], [place], [place] and [place]. This disclosure is being madepursuant to the Care Everywhere program and may not contain all information available regarding this patient. 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
--- OUTSIDE RECORDS SUMMARY | 2025-04-03 12:06 | XMS_ITS | Clinical Summary ---
Author Organization [address] Address [address] [place] [phone] Care Team Providers Care Correspondence Renew Clerk Name Role Phone Miscellaneous, Not In File [...] on file Legal Sex Female 1:26 PM LAW REPORTER Gender Identity Not on file Sexual Orientation Not on file Last Filed Vital Signs Vital Sign Reading [...] 08/29/2020 Influenza Vaccine (#1) 2025 Care Teams Correspondence Renew Clerk Relationship Specialty Start Date End Date Miscellaneous, Not In File PCP - General 10/21/22
[2025-04-03 12:33] VITALS: BP 150/93; PULSE 76
--- OUTSIDE RECORDS SUMMARY | 2025-04-03 13:10 | XMS_ITS | Clinical Summary ---
Author Organization [facility] Address [address] [place] [address] Care Team Providers Care Av Specialist Name Role Phone Dora Pickett MD Primary Care Provider [phone]- [phone] Social History Tobacco Use Types Packs/Day Years Used Date Smoking Tobacco: Never Assessed Comments Unknown Sex and Gender Information Value Date Recorded Sex Assigned at Not on file Legal Sex Female 7:04 PM CDT Gender Identity Not on file Sexual Orientation Not on file Plan of Treatment Not on file Insurance [employer]ICA Care Teams Av Specialist Relationship Specialty Start Date End Date Dora Pickett MD [address] [place] [address] PCP - General Family Medicine 10/21/21
--- OUTSIDE RECORDS SUMMARY | 2025-04-03 13:10 | XMS_ITS | Clinical Summary ---
Author Organization [facility] Address [address] [place] [address] Care Team Providers Care Audio Technician Name Role Phone Unavailable Primary Care Provider Unavailabl e Source Comments [facility],non-owned Affiliates and Associated Physician Practices is amultiple site organization consisting of ambulatory clinics and hospital sitesin [place], [place], [place] and [place]. This disclosure is being madepursuant to the Care Everywhere program and may not contain all information available regarding this patient. 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
--- OUTSIDE RECORDS SUMMARY | 2025-04-03 13:10 | XMS_ITS | Clinical Summary ---
Author Organization [facility] Address [address] [place] [address] Care Team Providers Care Chain Maker Loom Control Name Role Phone Unavailable Primary Care Provider [...] age to complete this topic Insurance [place]ICA [place] [id number]
--- OUTSIDE RECORDS SUMMARY | 2025-04-03 13:10 | XMS_ITS | Clinical Summary ---
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
--- OUTSIDE RECORDS SUMMARY | 2025-04-03 13:10 | XMS_ITS | Encounter Summary ---
Author Organization [facility] Health Address [address] [place] [address] Care Team Providers Care Manager Legal Name Role Phone Unavailable Primary Care Provider Unavailabl e Encounter Details Date Type Department Care Team (Late st Contact Info) Description 07/29/2022 Lab Requisition [facility] Care Pathology Lab [address] [place] [address] Ezra Rader MD [address] [facility] [address] [place] [phone] Illness, unspecified Social History Tobacco Use Types Packs/Day Years Used Date Smoking Tobacco: Never Assessed Comments Unknown Sex and Gender Information Value Date Recorded Sex Assigned at Not on file 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
== END 2025-04-03 12:35 | disposition home or self-care (01) ==
PROVIDERS: Emergency Provider Emergency Medicine; PCP Family Medicine
DX: R25.1 Tremor, unspecified (principal); E53.8 Deficiency of other specified B group vitamins; Z79.84 Long term (current) use of oral hypoglycemic drugs; Z79.899 Other long term (current) drug therapy; Z90.79 Acquired absence of other genital organ(s); Z90.49 Acquired absence of other specified parts of digestive tract; I44.4 Left anterior fascicular block; R94.31 Abnormal electrocardiogram [ECG] [EKG]
CPT/HCPCS: 36415; 70496; 70498; 80053; 83735; 84443; 85025; 85610; 85730; 93005; 99284; Q9967